=== PATIENT | female | born 1975 | race Caucasian/White ===

== ENCOUNTER 2019-05-04 12:22 | Inpatient (IN) | payer OTHER ==
[~2019-05-04] VITALS: Ht 160 cm; Wt 66.0 kg
[~2019-05-04 12:22] MED LIST: ATARAX,VISTARIL50 MG PO; ATIVAN0.5 MG PO; BENTYL10 MG PO; CARBIDOPA/LEVOD1 TA1 PO; ONDANSETRON HYDR4 M1 PO; SUBOXONE 2 MG-01 TA2 SL; TORADOL10 MG PO
[2019-05-04 12:27] VITALS: BP 130/80
--- NOTE | 2019-05-04 13:00 | NUR ---
PATIENT PROVIDED A URINE SPECIMEN. SENT TO LAB. NEGATIVE.
[2019-05-04 13:15] LABS: URINE AMPHETAMINES < 1000 (1000ng/ml); URINE BARBITURATES < 200 (200ng/ml); URINE BENZODIAZEPINES < 200 (200ng/ml); URINE CANNABINOIDS (THC) < 50 (50ng/ml); URINE COCAINE > 300 (300ng/ml); URINE METHADONE < 300 (300ng/ml); URINE OPIATES > 300 (300ng/ml)
[2019-05-04 13:16] LABS: URINE PHENCYCLIDINE < 25 (25ng/ml)
[2019-05-04 13:22] LABS: BILIRUBIN NEGATIVE (NEGATIVE); BLOOD NEGATIVE (NEGATIVE); CLARITY CLOUDY (CLEAR); COLOR YELLOW (YELLOW); GLUCOSE NEGATIVE (NEGATIVE); KETONE NEGATIVE (NEGATIVE); PH 6.5 (5.0-9.0)
[2019-05-04 13:23] LABS: BACTERIA 4+; LEUKO ESTERASE 1+ (NEGATIVE); NITRITE POSITIVE (NEGATIVE); UROBILINOGEN 0.2 E.U./dl (0.2-1.0)
[2019-05-04 13:24] LABS: WBC 21-30 wbc/hpf (0-5)
--- NOTE | 2019-05-04 13:52 | NUR ---
[place] STAFF SPOKE TO PATIENT. PATIENT MEETS [facility]. PATIENT IS WANTING THE VIVITROL SHOT FOR HER AFTERCARE PLAN. TEA TOBAR B.A. ADULT REMEDIAL EDUCATION INSTRUCTOR
--- NOTE | 2019-05-04 14:00 | NUR ---
Time: 1400 A 44 year old FEMALE admitted to 5E under services of SILVIA ARREOLA DO. Pt. arrived via wheel chair from ER. Chief complaint: OPIATE WITHDRAWAL. PATIENT ORIENTED TO THE FLOOR 5E, FORMS REVIEWED AND SIGNED. CALL LIGHT SYSTEM REVIEWED AND DEMONSTRATED. ALVA SOLOMON
--- NOTE | 2019-05-04 14:21 | NUR ---
DR. CHRISTINE IN TO SEE THE PATIENT AND EXPLAIN SUBUTEX TAPER AND PLAN OF CARE. SR. CHRISTINE NOTIFIED THAT MED REC IS UP-TO-DATE.
[2019-05-04 14:55] LABS: BASO # 0.1 10*3/uL (0.0-0.1); BASO % 1.1 % (0.0-1.0); EOS # 0.2 10*3/uL (0.0-0.4); EOS % 2.9 % (1.0-4.0); HEMATOCRIT 43.1 % (37.0-47.0); HEMOGLOBIN 14.7 g/dl (12.0-16.0); LYMPH # 2.4 10*3/uL (1.3-4.4); LYMPH % 36.5 % (27.0-41.0); MEAN CELL VOLUME 93.3 fl (81.0-99.0); MEAN CORPUSCULAR HGB 31.8 pg (27.0-31.0); MEAN CORPUSCULAR HGB CONC 34.1 g/dl (33.0-37.0); MEAN PLATELET VOLUME 12.9 fl (9.6-12.3); MONO # 0.5 10*3/uL (0.1-1.0); MONO % 7.4 % (3.0-9.0); NEUT # 3.4 10*3/uL (2.3-7.9); NEUT % 51.9 % (47.0-73.0); PLATELET COUNT AUTOMATED 176 10*3/uL (130-400); RED BLOOD COUNT 4.62 10*6/uL (4.10-5.10); RED CELL DISTRI WIDTH 12.8 % (0-14.5); WHITE BLOOD COUNT 6.6 10*3/uL (4.8-10.8)
[2019-05-04 15:03] LABS: ALBUMIN 3.9 gm/dl (3.1-4.5); ALKALINE PHOSPHATASE 129 U/L (45-117); BUN 11 mg/dl (7-24); CHLORIDE 107 mmol/L (98-107); CREATININE 0.68 mg/dL (0.55-1.02); ETHYL ALCOHOL < 3.0 mg/dl (<3); POTASSIUM 3.7 mmol/L (3.5-5.1); SGOT/AST 68 IU/L (3-35); SGPT/ALT 82 U/L (12-78); SODIUM 140 mmol/L (136-145); TOTAL PROTEIN 7.9 gm/dL (6.4-8.2)
--- NOTE | 2019-05-04 15:39 | NUR ---
[place] STAFF IN TO SEE PATIENT. PATIENT IS WANTIG TO FOLLOW UP WITH Kelly FOR THE VIVITROL SHOT. ME STAFF WILL SET UP APPOINTMENT FOR HER. TEA TOBAR B.A. MARINE PILOT
[2019-05-04 16:00] VITALS: BP 115/73
--- NOTE | 2019-05-04 17:26 | NUR ---
ROBAXIN, VISTARIL, AND TYLENOL WERE GIVEN PER PT REQUEST FOR HEADACHE, LEG CRAMPING, AND ANXIETY. WILL CONTINUE TO MONITOR AND REASSESS.
[2019-05-04 20:00] VITALS: BP 106/51
--- NOTE | 2019-05-04 20:05 | NUR ---
PATIENT MEDICATED WITH PRN MOTRIN FOR PAIN AND REQUIP FOR RESTLESS LEGS. PATIENT IS VERY ANXIOUS AND IRRITABLE AT THIS TIME. C/O SWEATING. REMINDED TO NOT LEAVE THE FLOOR. BED IN LOW POSITION, CALL LIGHT IN REACH
[2019-05-05] VITALS: BP 123/72
--- NOTE | 2019-05-05 | NUR ---
MEDICATED WITH PRN VISTARIL, ZOFRAN AND ROBAXIN FOR WITHDRAWAL SYMPTOMS
--- NOTE | 2019-05-05 04:30 | NUR ---
medicated with prn motrin for pain, and bentyl for abdominal cramps
[2019-05-05 08:00] VITALS: BP 97/53
--- NOTE | 2019-05-05 11:23 | NUR ---
MEDICATED WITH VISTARIL,REQUIP,TYLENOL,ANDROBAXIN PER ORDERS AND REQUEST.
[2019-05-05 12:00] VITALS: BP 124/77
--- NOTE | 2019-05-05 12:37 | NUR ---
MEDS EARLIER EFFECTIVE.
--- NOTE | 2019-05-05 14:26 | NUR ---
MEDICATED WITH PRN BENTYL,MOTRIN,ROBAXIN,VISTARIL,ZOFRAN PER ORDERS AND REQUEST.
--- NOTE | 2019-05-05 15:55 | NUR ---
NICHELLE,MOTCHATA,ROBAXIN,VISTARIReed,ROSALBA HELPED.
[2019-05-05 16:00] VITALS: BP 105/67
--- NOTE | 2019-05-05 16:36 | NUR ---
[place] STAFF IN TO SPEAK WITH PATIENT. PATIENT IS STILL WANTING TO FOLLOW UP WITH Kelly FOR THE VIVITROL SHOT. TEA TOBAR B.A. CIDER MAKER
[2019-05-05 20:00] VITALS: BP 114/81
[2019-05-06] VITALS: BP 96/53
[2019-05-06 08:00] VITALS: BP 105/72
--- NOTE | 2019-05-06 08:04 | NUR ---
MEDICATED WITH PRN ZOFRAN,REQUIP,ROBAXIN,AND VISTARIL PER ORDERS AND REQUEST.
--- NOTE | 2019-05-06 09:00 | NUR ---
REQUCONORROBTENZIN,VISTARIL,ZOMARLY HELPED.
[2019-05-06 12:00] VITALS: BP 110/68
--- NOTE | 2019-05-06 12:13 | NUR ---
MEDICATED WITH MOTRIN AND BENTYL PER ORDERS AND REQUEST.
--- NOTE | 2019-05-06 14:53 | NUR ---
[place] STAFF SCHEDULED PATIENT'S APPOINTMENT AT [facility] FOR FRIDAY, May AT 9:30AM. [place] STAFF REVIEWED APPONTMENT DATE AND TIME WITH PATIENT. PATIENT IS WANTING THE VIVITROL SHOT FOR HER AFTERCARE PLAN. TEA TOBAR B.A. INDUSTRIAL NURSE
[2019-05-06 16:00] VITALS: BP 120/62
--- NOTE | 2019-05-06 16:56 | NUR ---
MEDICATED WITH ROBAXIN,VISTARIL,ZOFRAN,REQUIP PER ORDERS.
--- NOTE | 2019-05-06 16:57 | NUR ---
PATIENT ALSO GIVEN LIBRIUM.
--- NOTE | 2019-05-06 17:43 | NUR ---
ROBAXIN,LIBRIUM,ZOFRAN,VISTARIL,AND REQUIP HELPED.
[2019-05-06 20:00] VITALS: BP 109/66
[2019-05-07] VITALS: BP 106/66
--- NOTE | 2019-05-07 01:20 | NUR ---
PATIENT MEDICATED WITH LIBRIUM, VISTARIL,SENNAKOT,ROBAXIN,TRAZODONE, BENTYL AND ZOFRAN PER PRN ORDER FOR S/S OF WITHDRAWAL. SEE EMAR. REINFORCED USE OF CALL LIGHT.
[2019-05-07 07:33] LABS: BASO % 0.7 % (0.0-1.0); EOS # 0.1 10*3/uL (0.0-0.4); EOS % 2.2 % (1.0-4.0); HEMATOCRIT 41.7 % (37.0-47.0); HEMOGLOBIN 14.2 g/dl (12.0-16.0); LYMPH % 49.1 % (27.0-41.0); MEAN CELL VOLUME 93.5 fl (81.0-99.0); MEAN CORPUSCULAR HGB 31.8 pg (27.0-31.0); MEAN CORPUSCULAR HGB CONC 34.1 g/dl (33.0-37.0); MEAN PLATELET VOLUME 13.3 fl (9.6-12.3); MONO # 0.3 10*3/uL (0.1-1.0); MONO % 5.5 % (3.0-9.0); NEUT # 2.6 10*3/uL (2.3-7.9); NEUT % 42.3 % (47.0-73.0); PLATELET COUNT AUTOMATED 158 10*3/uL (130-400); RED BLOOD COUNT 4.46 10*6/uL (4.10-5.10); RED CELL DISTRI WIDTH 12.9 % (0-14.5)
[2019-05-07 07:53] LABS: CREATININE 0.64 mg/dL (0.55-1.02)
--- NOTE | 2019-05-07 08:00 | NUR ---
Patient resting quietly with no c/o discomfort. Respirations easy and regular. Vital signs stable. No overt distress. ISAAC DAVENPORT R
[2019-05-07] MEDS ORDERED: ATARAX,VISTARIL50 MG PO (11:42)
[2019-05-07] MEDS ORDERED: ZOFRAN 4 MG ED2 TAB PO (11:42)
--- NOTE | 2019-05-07 11:50 | NUR ---
Discharge instructions reviewed with patient/family. Patient receptive and verbalizes understanding. Follow-up care arranged. Written instructions given to patient/family. ISAAC DAVENPORT
== END 2019-05-07 11:50 | disposition home or self-care (01) | DRG 773 ==
LOC: ED 12:22 → EDHOLD 12:48 → 5E 12:48
PROVIDERS: Nurse Practitioner Family; ADMIT Internal Medicine
DX: F11.23 Opioid dependence with withdrawal (principal); F13.239 Sedative, hypnotic or anxiolytic dependence with withdrawal, unspecified; F14.10 Cocaine abuse, uncomplicated; R74.0 Nonspecific elevation of levels of transaminase and lactic acid dehydrogenase [LDH]; F41.9 Anxiety disorder, unspecified; G25.81 Restless legs syndrome; F17.210 Nicotine dependence, cigarettes, uncomplicated; F31.9 Bipolar disorder, unspecified; F41.0 Panic disorder [episodic paroxysmal anxiety]; Z71.6 Tobacco abuse counseling; Z88.2 Allergy status to sulfonamides; Z88.1 Allergy status to other antibiotic agents; Z88.8 Allergy status to other drugs, medicaments and biological substances; Z82.49 Family history of ischemic heart disease and other diseases of the circulatory system; Z83.79 Family history of other diseases of the digestive system; Z84.1 Family history of disorders of kidney and ureter; Z82.3 Family history of stroke; Z80.8 Family history of malignant neoplasm of other organs or systems; Z82.0 Family history of epilepsy and other diseases of the nervous system

== ENCOUNTER 2019-06-11 13:44 | Inpatient (IN) | payer OTHER ==
[~2019-06-11] VITALS: Ht 160 cm; Wt 75.9 kg
[~2019-06-11 13:44] MED LIST changes: +ZOFRAN 4 MG ED2 TAB PO
[2019-06-11 14:00] VITALS: BP 129/82
[2019-06-11 14:56] LABS: BILIRUBIN NEGATIVE (NEGATIVE); CLARITY CLOUDY (CLEAR); COLOR YELLOW (YELLOW); GLUCOSE NEGATIVE (NEGATIVE); KETONE TRACE (NEGATIVE)
[2019-06-11 14:57] LABS: BLOOD NEGATIVE (NEGATIVE); LEUKO ESTERASE NEGATIVE (NEGATIVE); NITRITE POSITIVE (NEGATIVE); PH 7.5 (5.0-9.0); SPECIFIC GRAVITY 1.015 (1.005-1.030)
[2019-06-11 15:04] LABS: URINE AMPHETAMINES < 1000 (1000ng/ml); URINE BARBITURATES < 200 (200ng/ml); URINE BENZODIAZEPINES > 200 (200ng/ml); URINE CANNABINOIDS (THC) < 50 (50ng/ml); URINE COCAINE > 300 (300ng/ml); URINE METHADONE < 300 (300ng/ml); URINE OPIATES > 300 (300ng/ml); URINE PHENCYCLIDINE < 25 (25ng/ml)
[2019-06-11 15:08] LABS: BACTERIA 4+; RBC 0-2 rbc/hpf (0-2)
[2019-06-11 15:27] LABS: HEMATOCRIT 38.7 % (37.0-47.0); HEMOGLOBIN 13.4 g/dl (12.0-16.0); MEAN CELL VOLUME 90.2 fl (81.0-99.0); MEAN CORPUSCULAR HGB 31.2 pg (27.0-31.0); MEAN CORPUSCULAR HGB CONC 34.6 g/dl (33.0-37.0); MEAN PLATELET VOLUME 13.7 fl (9.6-12.3); PLATELET COUNT AUTOMATED 156 10*3/uL (130-400); RED BLOOD COUNT 4.29 10*6/uL (4.10-5.10); RED CELL DISTRI WIDTH 12.9 % (0-14.5); WHITE BLOOD COUNT 9.9 10*3/uL (4.8-10.8)
[2019-06-11] MEDS ORDERED: KEPPRA500 MG PO (15:32)
[2019-06-11 15:45] LABS: ALBUMIN 3.5 gm/dl (3.1-4.5); ALKALINE PHOSPHATASE 104 U/L (45-117); BUN 11 mg/dl (7-24); CHLORIDE 109 mmol/L (98-107); CREATININE 0.62 mg/dL (0.55-1.02); POTASSIUM 4.2 mmol/L (3.5-5.1); SGOT/AST 51 IU/L (3-35); SGPT/ALT 56 U/L (12-78); SODIUM 137 mmol/L (136-145); TOTAL PROTEIN 7.1 gm/dL (6.4-8.2)
[2019-06-11 15:48] LABS: BETA-HCG, QUANT < 1.0 mIU/mL (1-3)
[2019-06-11 15:53] LABS: ETHYL ALCOHOL < 3.0 mg/dl (<3)
[2019-06-11 15:58] LABS: ATYPICAL LYMPHS 1 % (0-0); TOTAL CELLS COUNTED 100 #CELLS
[2019-06-11 15:59] LABS: PLATELET SUFFICIENCY NORMAL (NORMAL)
[2019-06-11 16:00] VITALS: BP 122/79
[2019-06-11 20:00] VITALS: BP 113/76
[2019-06-12] VITALS: BP 90/43
[2019-06-12 04:00] VITALS: BP 94/57
[2019-06-12 08:00] VITALS: BP 104/65
[2019-06-12 12:00] VITALS: BP 105/53
[2019-06-12 16:00] VITALS: BP 108/61
[2019-06-12 20:00] VITALS: BP 100/51
[2019-06-13] VITALS: BP 139/70; BP 98/49
[2019-06-13 08:00] VITALS: BP 113/70
[2019-06-13 12:00] VITALS: BP 97/57
[2019-06-13 16:00] VITALS: BP 117/71
== END 2019-06-13 20:15 | disposition left against medical advice (07) | DRG 770 ==
LOC: ED 13:44 → 5E 14:40 → EDHOLD 14:40 → 5E 15:02
PROVIDERS: Emergency Medicine; ADMIT Family Medicine
DX: F11.23 Opioid dependence with withdrawal (principal); F14.23 Cocaine dependence with withdrawal; F43.10 Post-traumatic stress disorder, unspecified; F41.9 Anxiety disorder, unspecified; F31.9 Bipolar disorder, unspecified; Z68.29 Body mass index [BMI] 29.0-29.9, adult; F13.10 Sedative, hypnotic or anxiolytic abuse, uncomplicated; F17.210 Nicotine dependence, cigarettes, uncomplicated; F41.0 Panic disorder [episodic paroxysmal anxiety]; F19.10 Other psychoactive substance abuse, uncomplicated; G47.00 Insomnia, unspecified; G25.81 Restless legs syndrome; Z81.1 Family history of alcohol abuse and dependence; Z84.1 Family history of disorders of kidney and ureter; Z84.89 Family history of other specified conditions; Z80.49 Family history of malignant neoplasm of other genital organs; Z80.8 Family history of malignant neoplasm of other organs or systems; Z82.49 Family history of ischemic heart disease and other diseases of the circulatory system; Z88.1 Allergy status to other antibiotic agents; Z88.2 Allergy status to sulfonamides; Z88.8 Allergy status to other drugs, medicaments and biological substances; Z79.899 Other long term (current) drug therapy; N39.0 Urinary tract infection, site not specified